=== PATIENT | female | born 1950 | race Caucasian/White ===

== ENCOUNTER 2018-01-30 08:20 | Emergency (ER) | payer MEDICARE ==
[~2018-01-30] VITALS: Ht 167.6 cm; Wt 63.6 kg
[~2018-01-30 08:20] MED LIST: GLUCOPHAGE850 MG PO; K-DUR20 MEQ PO; LASIX40 MG PO; LOPRESSOR50 MG PO; PRINIVIL10 MG PO; PRINZIDE 10/12.1 TAB PO; ULTRAM50 MG PO; URECHOLINE25 MG PO; VICOPROFEN 7.5/1 TAB PO
[2018-01-30 08:22] VITALS: Ht 167.6 cm; Wt 63.6 kg
[2018-01-30] MEDS ORDERED: ALDACTONE25 MG PO (08:24)
[2018-01-30] MEDS ORDERED: PLAVIX75 MG PO (08:25)
[2018-01-30] MEDS ORDERED: BAYER CHEWABLE81 MG PO (08:25)
[2018-01-30] MEDS ORDERED: NEURONTIN 300300 MG PO (08:26)
[2018-01-30] MEDS ORDERED: LIPITOR10 MG PO (08:26)
[2018-01-30] MEDS ORDERED: COREG25 MG PO (08:27)
[2018-01-30] MEDS ORDERED: CELEXA20 MG PO (08:28)
[2018-01-30 11:36] LABS: BASOPHILS 0.2 % (0-2); EOSINOPHILS 1.3 % (0-7); HEMATOCRIT 40.9 % (36.0-48.0); IMMATURE GRANULOCYTES 0.1 % (0-5); LYMPHOCYTES 17.2 % (15-50); MCHC 34.2 g/dL (31.0-37.0); MCV 87.6 fL (80.0-100.0); MEAN PLATELET VOLUME 9.2 fL (7.4-10.4); MONOCYTES 9.7 % (2-11); NEUTROPHILS 71.5 % (40-80); PLATELET COUNT 151 10x3/uL (130-400); RBC 4.67 10x6/uL (4.00-5.40); RDW 13.3 % (11.5-14.5); WBC 8.2 10x3/uL (4.8-10.8)
[2018-01-30 12:03] LABS: APPEARANCE CLEAR (CLEAR); BILIRUBIN NEGATIVE (NEGATIVE); COLOR YELLOW (YELLOW); GLUCOSE NEGATIVE (NEGATIVE); KETONE NEGATIVE (NEGATIVE); NITRITE NEGATIVE (NEGATIVE); PROTEIN TRACE mg/dL (NEGATIVE); UROBILINOGEN NORMAL (NORMAL)
[2018-01-30 12:04] LABS: BACTERIA FEW /hpf (NONE SEEN); EPITHELIAL CELLS 0-5 /hpf (0-5); WHITE CELLS - URINE 0-5 /hpf (0-5)
[2018-01-30 12:07] LABS: ALBUMIN 3.9 g/dL (3.4-5.0); ALKALINE PHOSPHATASE 19 U/L (46-116); ALT (SGPT) 33 U/L (10-68); BILIRUBIN - TOTAL 1.24 mg/dL (0.2-1.3); CALC OSMOLALITY 281 mosm/kg (275-300); CALCIUM 9.2 mg/dL (8.5-10.1); CARBON DIOXIDE 34.7 mmol/L (21.0-32.0); CHLORIDE - SERUM 101 mmol/L (98-107); CREATININE - SERUM 0.9 mg/dL (0.6-1.3); GLUCOSE 127 mg/dL (74-106); PROTEIN - SERUM 7.4 g/dL (6.4-8.2); SODIUM 140 mmol/L (136-145); UREA NITROGEN 14 mg/dL (7-18); eGFR NON AFRICAN AMERICAN 66 mL/min (90-120)
[2018-01-30 12:10] LABS: LIPASE 183 U/L (73-393); TROPONIN-I < 0.017 ng/mL (0.000-0.060)
[2018-01-30 13:13] VITALS: BP 132/76
== END 2018-01-30 13:14 | disposition home or self-care (01) ==
LOC: D.ER 08:20
PROVIDERS: Family Medicine
DX: R51 Headache (principal); R11.10 Vomiting, unspecified; Z86.73 Personal history of transient ischemic attack (TIA), and cerebral infarction without residual deficits; E11.9 Type 2 diabetes mellitus without complications; I50.9 Heart failure, unspecified; I44.7 Left bundle-branch block, unspecified

== ENCOUNTER → 2019-06-08 10:25 | Outpatient (CLI) | payer MEDICARE, MEDICAID ==
[2018-01-30 08:22] VITALS: BMI 22.6
[~2019-06-08 10:25] MED LIST changes: +ALDACTONE25 MG PO; +BAYER CHEWABLE81 MG PO; +CELEXA20 MG PO; +COREG25 MG PO; +LIPITOR10 MG PO; +NEURONTIN 300300 MG PO; +PLAVIX75 MG PO
--- NOTE | 2019-06-09 14:04 | ST ---
PATIENT:ZACHARY CHOE MEDICAL RECORD: [id number] SEX: F LOCATION:[facility] ORDER #: ADMISSION DATE: 06/08/19 AGE OF PATIENT: 68 REFERRING PHYSICIAN: INTERPRETING PHYSICIAN: JOSS LARA MD DATE OF SERVICE: 06/08/2019 PROCEDURE: Nuclear stress test. INDICATION: Angina, coronary artery disease, shortness of breath, hypertension, hyperlipidemia. She was exercised on standard Lexiscan protocol with 33 mCi of sestamibi injected at peak stress, 11 mCi used previously for rest images. FINDINGS: Gated SPECT reveals preserved ejection fraction at 50% with good wall motion and thickening and brightening throughout all segments. SPECT imaging Cardiolite was used as myocardial fusion agent. There is homogeneous uptake throughout all segments at rest and stress with no evidence of inducible ischemia or previous infarction. OVERALL IMPRESSION: 1. This is a normal nuclear stress test with no evidence of inducible ischemia or previous infarction. 2. Gated SPECT reveals a preserved ejection fraction at 50%. In this patient with ongoing symptomatology, the current scan does not suggest the presence of hemodynamically significant coronary artery disease. Evaluate noncardiac etiology of chest pain. TRANSINT:[id number] Voice Confirmation ID: [id number] DOCUMENT ID: [id number] JOSS LARA MD at 1404 CC: GENEVIEVE COLE MD [id number] DICTATION DATE: 06/08/19 1639 PERSONAL INJURY SPECIALIST: 06/09/19 0828 DEP CLI 06/08/19 [place] [id number] [place] [id number]
--- NOTE | 2019-06-09 14:04 | EC ---
PATIENT:ZACHARY CHOE DATE OF SERVICE: 06/08/19 SEX: F MEDICAL RECORD: [id number] DATE OF : 48 LOCATION:[facility] AGE OF PATIENT: 68 ADMISSION DATE: 06/08/19 REFERRING PHYSICIAN: INTERPRETING PHYSICIAN: JOSS BAIG MD ECHOCARDIOGRAM REPORT ECHO CHARGES 4 ECHO COMPLETE Date: 06/08/19 CLINICAL DIAGNOSIS: ANGINA/ROMERO/MURMUR/MR/MITRAL CLIP H/O HTN/CAD ECHOCARDIOGRAPHIC MEASUREMENTS (adult normal given) AC root (d.<3.7cm) 3.1 cm LV Septum d (<1.2 cm> 1.7 cm Valve Excursion 1.9 cm LV Septum (systole) 2.1 cm Left Atria (s.<4.0cm> 4.3 cm LVPW d(<1.2cm) 1.4 cm RV (d.<2.3cm) 2.3 cm LVPW (sytole) 1.8 cm LV diastole(<5.6CM) 5.4 cm MV E-F(>70mm/sec) cm LV systole 3.8 cm LVOT Diameter 1.7 cm MV exc.(>10mm) cm Est.ejection fraction (50-75%) % DOPPLER: LVIT cm/sec A 136 cm/sec E 80.0 cm/sec LA cm/sec RVSP 26.0 mmHg LVOT 86.0 cm/sec AOP1/2T m/s Asc. Ao 133 cm/sec RVOT 50.0 cm/sec RA cm/sec PA 90.0 cm/sec AV Gradient Peak 7.1 mmHg AV Mean 4.3 mmHg AV Area 1.3 cm MV Gradient Peak 9.5 mmHg MV Mean 3.1 mmHg MV Area cm COMMENTS: OP - HC Top Flavor Attendant: 1 RAMIREZ FUENTESOE Embedded Software Architect: 1 Dr. Baig TAPE# PACS Pericardial Effusion N DATE OF SERVICE: ECHOCARDIOGRAM FINDINGS: 1. Left ventricular chamber size is within normal limits. Left ventricular systolic function is moderately depressed at 30%. 2. Left atrium is enlarged at 4.3 cm. Right atrium and right ventricular chamber sizes are as well mildly dilated. ECHOCARDIOGRAM REPORT [id number] ZACHARY CHOE 3. Valvular structures have normal structure and motion. 4. Doppler interrogation reveals [id number] mitral regurgitation, trace tricuspid regurgitation, no other valvular insufficiency or stenosis. Pulmonary systolic pressure estimated at 26 mmHg. 5. No evidence of pericardial effusion or left ventricular thrombus. TRANSINT:[id number] Voice Confirmation ID: [id number] DOCUMENT ID: [id number] JOSS BAIG MD at 1404 CC: [id number] DICTATION DATE: 06/08/19 1630 LEGAL ARCHIVIST: 06/09/19 0258 DEP CLI 06/08/19 [place] [id number]
== END | disposition home or self-care (01) ==
LOC: D.HCCARDIO 10:25 → D.HCCECHO 11:00
PROVIDERS: ATTEND Internal Medicine Interventional Cardiology
DX: I25.119 Atherosclerotic heart disease of native coronary artery with unspecified angina pectoris (principal); I42.9 Cardiomyopathy, unspecified

== ENCOUNTER 2020-01-22 14:13 | Observation (INO) | payer MEDICARE, MEDICAID ==
[~2020-01-22] VITALS: Ht 167.6 cm; Wt 80.7 kg
--- NOTE | ~2020-01-22 | HEMODYNAMI ---
PATIENT:ZACHARY CHOE MEDICAL RECORD: [id number] : [birth year] [id number] ADMISSION DATE: 01/22/20 Generatedon:01/23/202015:55 Patient name: ZACHARY CHOE Patient #: [id number] SSN: : Date of study: 01/23/2020 Page: Of Hemodynamic Procedure Report Patient Data Patient Demographics Procedure consent was obtained First Name: ZACHARY Gender: Female Last Name: ДМИТРИЙ : 1950 [facility] Initial: ANGELO Age: 69 year(s) Patient #: [id number] Race: Unknown Additional ID: [id number] Contact details [address]: [address] [place] [address] State: [place] City: [place] Zip code: [address] Past Medical History Allergies: No known allergies Admission Admission Data Admission Date: 01/22/2020 Admission Time: 19:08 Room #: D.2119 Height (in.): 66.14 BSA: 1.91 (m2) Height (cm.): 168 BMI: 28.7 (kg/m2) Weight (lbs.): 178.58 Weight (kg.): 81 Lab Results Lab Result Date: 01/23/2020 Lab Result Time: 0:00 Biochemistry Name Units Result Min Max BUN mg/dl 16 --(---*)-- 7 18 Creatinine mg/dl 1 --(--*-)-- 0.6 1.3 eGFR ml/min 58 *-(----)-- 90 120 NONAFRICAN CBC Name Units Result Min Max Hemoglobin g/dl 11.5 *-(----)-- 13.5 17.5 Procedure Procedure Types Cath Procedure Diagnostic Procedure C [facility] w/Coronaries Sedation Charges Moderate Sedation up to 15 minutes Procedure Description Procedure Date Procedure Date: 01/23/2020 Procedure Start Time: 15:38 Procedure End Time: 15:50 Procedure Staff Name Function Clayton Isaac MD Performing Physician Symone Simpson RT Monitor Felisha Zhang RN Nurse Keri Morales RT Scrub Indication Chest pain Procedure Data Cath Procedure Fluoroscopy Diagnostic fluoroscopy Total fluoroscopy Time: 1.7 time: 1.7 min min Diagnostic fluoroscopy Total fluoroscopy dose: 341 dose: 341 mGy mGy Contrast Material Contrast Material Type Amount (ml) Isovue 300 50 Entry Location Entry Primary Successful Side Size Upsize Upsize Entry Closure Succes sful Closure Location (Fr) 1 (Fr) 2 (Fr) Remarks Device Remarks Femoral Right 5 Fr Exoseal artery Estimated blood loss: 5 ml Diagnostic catheters Device Type Used For End Catheter Placement MULTIPACK JL 4.0 5Fr Left Coronary catheter Angiography MULTIPACK 3DRC 5Fr Right Coronary catheter Angiography MULTIPACK Pigtail 5 Fr LV Angiography catheter Procedure Complications No complications Procedure Medications Medication Administration Route Dosage 0.9% NaCl I.V. 100 ml/hr Oxygen etCO2 Nasal cannula 2 l/min Lidocaine 2% added to field 20 Heparin Flush Bag added to field 2 bags (1000units/500ml NS) Versed I.V. 1 mg Fentanyl I.V. 50 mcg Hemodynamics Rest BSA: 1.91 (m2) HGB: 11.5 (g/dl) O2 Consumption: Estimated: 186.25 (ml/min) O2 Co nsumption indexed: Estimated:97.51 (ml/min/m) Heart Rate: 84 (bpm) Pressure Samples Time Site Value (mmHg) Purpose Heart Use Rate(bpm) 15:45 LV 201/4,19 Snapshot 83 15:46 AO 206/84(134) Pullback 82 15:46 LV 223/-1,29 Pullback 82 Gradients Valve Time Site 1 Site 2 Mean SEP/DFP Peak To Heart Use (mmHg) (sec/min) Peak Rate (mmHg) (bpm) Aortic 15:46 LV AO 18 27 17 82 223/-1,29 206/84(134) Calculations Valve P-P Mean Valve Index Valve Source Name Gradient Area Flow (cm2) Aortic 17 18 17 18 Snapshots Pre Cath Intra NCS Post Cath Vital Signs Time Heart Resp SPO2 etCO2 NIBP (mmHg) Rhythm Pain Sedation Rate (ipm) (%) (mmHg) Status Level (bpm) 15:00:45 77 25 96 14 183/90(123) NSR 0 (11) 10(A) , No pain 15:05:28 80 13 98 50.2 178/88(135) NSR 0 (11) 10(A) , No pain 15:10:06 78 12 96 54 176/83(138) NSR 0 (11) 10(A) , No pain 15:14:41 77 10 98 45.7 170/74(128) NSR 0 (11) 10(A) , No pain 15:19:19 77 12 98 54.7 172/74(105) NSR 0 (11) 10(A) , No pain 15:23:54 75 13 98 56.2 168/74(126) NSR 0 (11) 10(A) , No pain 15:28:22 77 13 98 49.5 162/79(122) NSR 0 (11) 10(A) , No pain 15:32:55 77 13 98 55.4 172/83(132) NSR 0 (11) 10(A) , No pain 15:37:37 77 14 98 56.9 181/81(128) NSR 0 (11) 10(A) , No pain 15:42:20 77 13 99 55.4 175/88(129) NSR 0 (11) 10(A) , No pain 15:46:58 83 13 99 56.9 192/90(152) NSR 0 (11) 10(A) , No pain Medications Time Medication Route Dose Verified Delivered Reason Notes Eff ectiveness by by 15:03:58 0.9% NaCl I.V. 100 Clayton Felisha used for ml/hr Poncho Zhang bench assembly inspector 15:04:03 Oxygen etCO2 2 Clayton Felisha used for Nasal l/min Poncho Zhang procedure cannula RN 15:04:08 Lidocaine 2% added 20ml Clayton Clayton for local to vial Poncho Isaac MD anesthetic field 15:04:12 Heparin Flush added 2 Clayton Clayton used for Bag to bags Poncho Isaac MD procedure (1000units/500ml field NS) 15:34:24 Versed I.V. 1 mg Clayton Felisha for Poncho Zhang sedation RN 15:34:33 Fentanyl I.V. 50 Clayton Felisha for mcg Poncho Zhang sedation office agent Log Time Note 14:45:36 Felisha Zhang RN sent for patient. Start room use. 14:48:11 Informed consent obtained and on chart 14:49:16 Indication : Chest pain 14:49:28 Procedure Status Urgent Heart Cath (IP). 14:49:38 Time tracking: Regular hours (M-F 7:00 - 5:00) 14:49:48 Plan of Care:Hemodynamics will remain stable., Cardiac rhythm will remain stable., Comfort level will be maintained., Respiratory function will remain adequate., Patient/ family verbilizes understanding of procedure., Procedure tolerated without complication., Recovers from procedure without complications.. 14:50:18 H&P Date Dictated: 01/23/2020 Within 30 days and on chart., ER History on chart.. 14:52:42 Patient received from Med II to CCL 1 Alert and oriented. Tansferred to table in Supine position. 14:53:09 Warm blankets applied, and ryan hugger turned on for patient comfort. 14:53:10 Correct patient and procedure confirmed by team. 14:53:12 ECG and BP/O2 sat monitors applied to patient. 14:53:18 Pre-procedure instructions explained to patient. 14:53:20 Pre-op teaching completed and patient verbalized understanding. 14:53:26 Family unavailable. 14:53:29 Patient NPO since Midnight. 14:54:56 Patient allergic to No known allergies 14:59:17 Vital chart was started 14:59:20 Baseline sample Acquired. 14:59:22 Full Disclosure recording started 14:59:28 Is the patient allergic to Iodine/contrast media? No. 14:59:29 Was the patient premedicated? Yes 14:59:32 Is patient on blood thinner?Unknown 14:59:34 Patient diabetic? Yes. 14:59:35 If diabetic: On Metformin? Yes 14:59:37 If on Metformin: Last Dose? 01/23/2020 14:59:42 Patient pain scale 0/10 ?. 14:59:52 IV patent on arrival in right forearm with 0.9% NaCl at O. 14:59:56 Lab results completed and on chart. 15:00:39 Lab Result : BUN 16 mg/dl 15:00:39 Lab Result : eGFR NONAFRICAN 58 ml/min 15:00:39 Lab Result : Creatinine 1 mg/dl 15:00:39 Lab Result : Hemoglobin 11.5 g/dl 15:00:46 Lab results completed and on chart. 15:00:56 Stress Test: no; N/A ? 15:01:02 Right Radial & Right Groin area was prepped with chlora-prep and draped in sterile fashion 15:01:03 Alarms reviewed by R. N. 15:01:03 Sharps counted by scrub and verified by R.N. 15:03:39 ACC The patient was administered the following blood thiners within the last 24 hours: ACCPlavix, ACCLovenox 15:03:50 Use device set Femoral Dx 15:03:52 ACIST Syringe (06443) opened to sterile field. 15:03:52 Bag Decanter (2002S) opened to sterile field. 15:03:53 Medline Cath Pack ([id number]) opened to sterile field. 15:03:55 ACIST Hand Control (07872) opened to sterile field. 15:03:56 ACIST Manifold (52702) opened to sterile field. 15:03:57 DIAGNOSTIC Multipack 5Fr catheter set ([id number]) opened to sterile field. 15:03:57 Tegaderm 4 x 4 (1626W) opened to sterile field. 15:03:58 0.9% NaCl 100 ml/hr I.V. was administered by Felisha Zhang RN; used for procedure; Verbal order read back and verified. 15:03:59 SHEATH 5FR [place] (RGY124) opened to sterile field. 15:04:00 EMERALD Guide Wire (568-555) opened to sterile field. 15:04:03 Oxygen 2 l/min etCO2 Nasal cannula was administered by Felisha Zhang RN; used for procedure; Verbal order read back and verified. 15:04:08 Lidocaine 2% 20ml vial added to field was administered by Clayton Isaac MD; for local anesthetic; Verbal order read back and verified. 15:04:12 Heparin Flush Bag (1000units/500ml NS) 2 bags added to field was administered by Clayton Isaac MD; used for procedure; Verbal order read back and verified. 15:04:20 Rhythm: sinus rhythm 15:08:11 ----Pre-sedation anethsthesia assessment.---- 15:08:15 Previous problem with sedation/anesthesia? Unknown ? 15:08:17 Snore? Yes 15:08:21 Sleep apnea? Unknown 15:08:23 Deviated septum? Unknown 15:08:26 Opens mouth fully? Yes 15:08:31 Sticks out tongue? Yes 15:13:08 Airway obstruction? No ? 15:13:13 Dentures? Unknown ? 15:13:23 Pre procedure: right dorsailis pedis pulse 2+ Normal; easily identifiable; not easily obliterated 15:14:22 Zero performed for pressure channel P1 15:16:43 Risk of Mortality: 0.4 15:16:47 Risk of blood transfusion: 1.4 15:16:51 Risk of MILA: 1.0 15:20:47 Patient Height : 66.14 inches 15:20:52 Patient Weight : 178.58 lbs 15:33:49 Physician arrived 15:33:50 --------ALL STOP TIME OUT------ 15:33:51 Final Timeout: patient, procedure, and site verified with staff and physician. All members of the team are in agreement. 15:33:53 Right groin site verified by team. 15:33:59 Fire Safety Assessment: A--An alcohol-based skin anteseptic being used preoperatively., C--Open oxygen or nitrous oxide is being used., D--An ESU, laser, or fiber-optic light is being used. 15:34:06 Physical assessment completed. ASA score P 2 - A patient with mild systemic disease as per Clayton Isaac MD. 15:34:12 3a) 45-59 Moderately reduced kidney function. 15:34:18 Maximum allowable contrast dose (3.7 X eGFR X 0.75)161 ml. 15:34:24 Versed 1 mg I.V. was administered by Felisha Zhang RN; for sedation; Verbal order read back and verified. 15:34:26 Sedation plan: IV Moderate Sedation Medication:Versed, Fentanyl 15:34:33 Fentanyl 50 mcg I.V. was administered by Felisha Zhang RN; for sedation; Verbal order read back and verified. 15:37:56 Procedure started. 15:38:54 Local anesthetic to right femoral artery with Lidocaine 2% by Clayton Isaac MD.INITIAL ACCESS ONLY 15:39:11 A 5 Fr sheath was inserted into the Right Femoral artery 15:40:13 A MULTIPACK JL 4.0 5Fr catheter was advanced over the wire and used for Left Coronary Angiography. 15:40:54 LCA angiography performed. 15:41:40 Injector settings: Ml/sec: 3, Volume: 6, 15:42:28 Catheter removed. 15:42:38 A MULTIPACK 3DRC 5Fr catheter was advanced over the wire and used for Right Coronary Angiography. 15:43:58 RCA angiography performed. 15:44:18 Catheter removed. 15:44:33 A MULTIPACK Pigtail 5 Fr catheter was advanced over the wire and used for LV Angiography. 15:45:43 LV gram done using GARCIA 15:45:51 Injector settings: Ml/sec: 5, Volume: 15, 15:46:02 EF : 35 % 15:46:27 LV hemodynamics recorded. 15:46:36 Catheter removed. 15:46:49 EXOSEAL 5Fr (EX500) opened to sterile field. 15:47:03 Contrast amount:Isovue 300 50ml. 15:47:11 Fluoroscopy time 01.70 minutes. 15:47:17 Fluoroscopy dose: 341 mGy 15:47:17 Flurop Dose total: 341 15:47:27 Dose Area Product 41352 mGy/cm. 15:47:37 Sheath removed intact; hemostasis achieved with Exoseal to the Right Femoral artery. 15:47:41 Procedure ended.(Physican Out) 15:47:53 Maximum allowable dose exceeded? No. 15:47:54 Sharps counted by scrub and verified by R.N. 15:48:28 Post-op/insertion site Right Femoral artery dressed using a 4 x 4 and Tegaderm. 15:48:43 Post-procedure physical assessment completed. ASA score P 2 - A patient with mild systemic disease as per Clayton Isaac MD. 15:48:48 Post procedure rhythm: unchanged. 15:48:52 Estimated blood loss: 5 ml 15:48:54 Post procedure instruction explained to patient.Patient verbalizes understanding. 15:48:55 Patient needs reinforcement of post procedure teaching. 15:49:20 Procedure type changed to Cath procedure, Diagnostic procedure, LHC, [facility] w/Coronaries, Sedation Charges, Moderate Sedation up to 15 minutes 15:49:22 Procedure and supply charges have been captured, reviewed, submitted and are correct. 15:49:31 Procedure Complication : No complications 15:49:35 Vital chart was stopped 15:49:39 [facility] Findings: mild to moderate CAD (<70%) 15:49:44 Operative report dictated upon procedure completion. 15:49:45 See physician's report for complete and final results. 15:49:49 Report given to [facility]. 15:49:53 Patient transfered to [facility] with Bed. 15:50:48 Procedure ended. 15:50:48 Full Disclosure recording stopped 15:50:52 End room use (Document Last) Device Usage Item Name Manufacture Quantity Catalog Hospital Part Current Minimal L ot# / Number Charge Number Stock Stock Serial# Code ACIST Acist 1 28241 [id number] 283979 013237 20 Syringe Medical (22531) Systems Inc Bag Microtek 1 2001S 761986 90233 204331 5 Decanter Medical Inc. () Medline Medline 1 [id number] 304379 42414 205036 5 Cath Pack ([id number]) ACIST Hand Acist 1 16547 119031 357846 096292 5 Control Medical (72627) Systems Inc ACIST Acist 1 86307 514647 953919 647750 5 Manifold Medical (76134) Systems Inc DIAGNOSTIC Cardinal 1 [id number] 171884 89265 133654 30 Multipack Health 5Fr catheter set (CG2714) Tegaderm 4 3M 1 1626W 798724 881677 914456 5 x 4 (1626W) SHEATH 5FR Terumo 1 XGZ687 657833 725913 840682 5 [place] (QRZ822) EMERALD Cardinal 1 502-455 163471 664948 920725 5 Guide Wire Health (502-455) MULTIPACK Cardinal 1 036024 5 JL 4.0 5Fr Health catheter MULTIPACK Cardinal 1 [id number] 5 3DRC 5Fr Health catheter MULTIPACK Cardinal 1 832259 5 Pigtail 5 Health Fr catheter EXOSEAL 5Fr Cardinal 1 EX500 234750 106662 822113 10 (EX500) Health Signature Audit [place] Stage Time Signature Unsigned Intra-Procedure 01/23/2020 Symone 3:51:13 PM Tatiana RT(R) (CV) Intra-Procedure 01/23/2020 Felisha Zhang 3:52:10 PM RN Intra-Procedure 01/23/2020 Clayton Isaac MD 3:55:02 [place] [address]
[2020-01-22 14:34] VITALS: BP 177/64
[2020-01-22 15:21] LABS: BASOPHILS 0.2 % (0-2); HEMATOCRIT 34.8 % (36.0-48.0); HEMOGLOBIN 11.3 g/dL (12-16); IMMATURE GRANULOCYTES 1.7 % (0-5); MCH 29.1 pg (26.0-34.0); MCHC 32.5 g/dL (31.0-37.0); MCV 89.7 fL (80.0-100.0); MEAN PLATELET VOLUME 9.3 fL (7.4-10.4); NEUTROPHILS 49.1 % (40-80); PLATELET COUNT 160 10x3/uL (130-400); RBC 3.88 10x6/uL (4.00-5.40); WBC 4.6 10x3/uL (4.8-10.8)
[2020-01-22 15:35] LABS: APTT 29.1 SECONDS (22.8-39.4); CALC OSMOLALITY 279 mosm/kg (275-300); CALCIUM 9.4 mg/dL (8.5-10.1); CARBON DIOXIDE 30.2 mmol/L (21.0-32.0); CHLORIDE - SERUM 104 mmol/L (98-107); CREATININE - SERUM 1.1 mg/dL (0.6-1.3); GLUCOSE 102 mg/dL (74-106); POTASSIUM - SERUM 3.9 mmol/L (3.5-5.1); PROTIME 13.1 SECONDS (11.6-15.0); SODIUM 140 mmol/L (136-145); UREA NITROGEN 16 mg/dL (7-18); eGFR NON AFRICAN AMERICAN 52 mL/min (90-120)
[2020-01-22 15:52] LABS: ALBUMIN 3.6 g/dL (3.4-5.0); ALKALINE PHOSPHATASE 25 U/L (30-120); ALT (SGPT) 17 U/L (10-68); BILIRUBIN - TOTAL 0.36 mg/dL (0.2-1.3); CKMB 2.6 U/L (0.0-3.6); CREATINE KINASE 98 UL (21-215); MAGNESIUM - SERUM 2.3 mg/dL (1.8-2.4); PROTEIN - SERUM 6.4 g/dL (6.4-8.2)
[2020-01-22 15:59] LABS: TROPONIN-I 0.016 ng/mL (0.000-0.060)
--- NOTE | 2020-01-22 17:59 | NUR ---
PT LAYING IN BED. NO DISTRESS NOTED. COLOR WNL FOR RACE. RESPIRATIONS ARE EVEN AND UNLABORED. UPDATED PT ON AWAITING BED ASSIGNMENT AT THIS TIME.
--- NOTE | 2020-01-22 19:18 | NUR ---
called report maria elena at this time.
--- NOTE | 2020-01-22 20:30 | NUR ---
ADMIT TO ROOM 2119 FROM ER FOR CHEST/BACK/NECK/SHOULDER PAIN. ADMISSION HISTORY AND ASSESSMENT COMPLETED. HOME MEDS REVIEWED. PLAN OF CARE INITIATED. NPO UNTIL SEEN BY GARMENT PARTS CUTTER HAND IN AM
[2020-01-22 21:39] LABS: CKMB 2.1 U/L (0.0-3.6); CREATINE KINASE 96 UL (21-215); TROPONIN-I 0.019 ng/mL (0.000-0.060)
[2020-01-23] VITALS: BP 148/58
[2020-01-23 01:41] VITALS: BP 145/58; BMI 28.8
[2020-01-23 04:00] VITALS: BP 158/57
[2020-01-23 04:57] LABS: BASOPHILS 0.4 % (0-2); HEMATOCRIT 36.7 % (36.0-48.0); HEMOGLOBIN 11.5 g/dL (12-16); IMMATURE GRANULOCYTES 0.2 % (0-5); LYMPHOCYTES 36.7 % (15-50); MCH 28.5 pg (26.0-34.0); MCHC 31.3 g/dL (31.0-37.0); MCV 91.1 fL (80.0-100.0); MEAN PLATELET VOLUME 9.4 fL (7.4-10.4); MONOCYTES 8.6 % (2-11); NEUTROPHILS 47.1 % (40-80); PLATELET COUNT 173 10x3/uL (130-400); RBC 4.03 10x6/uL (4.00-5.40); RDW 13.2 % (11.5-14.5); WBC 4.9 10x3/uL (4.8-10.8)
--- NOTE | 2020-01-23 05:10 | NUR ---
NO CHANGE FROM ADMISSION ASSESSMENT. PT RESTING IN BED. NPO SINCE MIDNIGHT UNTIL CARDIOLOGY CONSULT THIS AM. NPO SIGN ON DOOR. CPOC.
[2020-01-23 05:31] LABS: ALBUMIN 3.6 g/dL (3.4-5.0); ALKALINE PHOSPHATASE 18 U/L (30-120); ALT (SGPT) 16 U/L (10-68); BILIRUBIN - TOTAL 0.44 mg/dL (0.2-1.3); CALC OSMOLALITY 284 mosm/kg (275-300); CALCIUM 8.8 mg/dL (8.5-10.1); CARBON DIOXIDE 35.2 mmol/L (21.0-32.0); CHLORIDE - SERUM 106 mmol/L (98-107); CKMB 1.8 U/L (0.0-3.6); CREATINE KINASE 74 UL (21-215); GLUCOSE 79 mg/dL (74-106); POTASSIUM - SERUM 3.5 mmol/L (3.5-5.1); PROTEIN - SERUM 6.5 g/dL (6.4-8.2); SODIUM 143 mmol/L (136-145); TROPONIN-I 0.017 ng/mL (0.000-0.060); UREA NITROGEN 16 mg/dL (7-18); eGFR NON AFRICAN AMERICAN 58 mL/min (90-120)
--- NOTE | 2020-01-23 07:34 | NUR ---
AM ROUNDING DONE WITH PATIENT BEING NPO FOR CARDIO CONSULT. ON HEART MONITOR SHOWING SR, HR 85. RIGHT FA SEEN WITH SALINE LOCK. ON ROOM AIR. ON EP, K+ IS 3.5. WILL TREAT WITH AM MEDS PER PROTOCOL. CALL LIGHT IN USE.
--- NOTE | 2020-01-23 08:32 | NUR ---
HEART PERMITS SIGNED, PATIENT HAS BEEN CLIPPED AND PREPPED FOR PROCEDURE.
[2020-01-23 09:00] VITALS: BP 166/69
[2020-01-23 09:36] LABS: CHOL - HDL RATIO 2.6 ratio (2.3-4.1); LDL-HDL RATIO 1.3 ratio (1.5-3.5)
[2020-01-23 09:58] LABS: CKMB 1.3 U/L (0.0-3.6); CREATINE KINASE 61 UL (21-215); TROPONIN-I < 0.017 ng/mL (0.000-0.060)
[2020-01-23 12:38] VITALS: Ht 167.6 cm; Wt 80.7 kg
[2020-01-23 12:49] VITALS: BP 164/65
--- NOTE | 2020-01-23 14:45 | NUR ---
PRE-OPS GIVEN. TO ENVIRONMENTAL SPECIALIST BY BED.
--- NOTE | 2020-01-23 16:15 | NUR ---
BACK FROM SURGICAL TECH. VS WNL. RIGHT GROIN STABLE WITHOUT BLEEDING OR HEMATOMA NOTED. WILL MONITOR.
[2020-01-23 17:02] VITALS: BP 155/79
--- NOTE | 2020-01-23 17:27 | NUR ---
DAUGHTER NOTIFIED OF DC.
--- NOTE | 2020-01-23 19:31 | NUR ---
PATIENT IS ALERT AND ORIENTED, AWAITING D/C. IV REMOVED CATHETER INTACT. RIGHT GROIN DRESSING C/D/I. NO S/S BLEEDING, BRUISING OR HEMATOMA. PATIENT ESCORTED OFF FLOOR VIA WHEELCHAIR.
== END 2020-01-23 19:38 | disposition home or self-care (01) ==
LOC: D.ER 14:13 → D.M2 19:08 → OBSVTIME 19:08 → D.M2 19:08
PROVIDERS: Family Medicine; Internal Medicine Cardiovascular Disease; ADMIT Family Medicine Adult Medicine; ATTEND Family Medicine Adult Medicine
DX: R07.9 Chest pain, unspecified (principal); I20.0 Unstable angina; E11.9 Type 2 diabetes mellitus without complications; I11.0 Hypertensive heart disease with heart failure; I50.9 Heart failure, unspecified; I82.409 Acute embolism and thrombosis of unspecified deep veins of unspecified lower extremity; Z79.84 Long term (current) use of oral hypoglycemic drugs; Z86.73 Personal history of transient ischemic attack (TIA), and cerebral infarction without residual deficits